=== PATIENT | male | born 1975 | race Caucasian/White ===

== ENCOUNTER 2021-08-28 19:16 | Emergency (ER) | payer BC ==
[~2021-08-28] VITALS: Ht 180.3 cm; Wt 88.6 kg
[2021-08-28] MEDS ORDERED: IV NORMAL SALINE 1000ML BAG 1,000 ML IV SCH (19:30)
[2021-08-28 19:55] LABS: BASO # 0.1 x10^3/uL (0.0-0.2); BASO % 1 % (0-3); EOS # 0.2 x10^3/uL (0.0-0.7); EOS % 1 % (0-3); HEMATOCRIT 41.2 % (39.0-53.0); HEMOGLOBIN 14.6 g/dL (13.0-17.5); LYMPH # 2.5 x10^3/uL (1.0-4.8); LYMPH % 15 % (24-48); MEAN CORPUSCULAR HEMOGLOBIN 32 pg (25-35); MEAN CORPUSCULAR HGB CONC 35 g/dL (31-37); MEAN CORPUSCULAR VOLUME 90 fL (79-100); MONO # 0.7 x10^3/uL (0.0-1.1); MONO % 4 % (0-9); NEUT # 13.4 x10^3/uL (1.8-7.7); NEUT % 79 % (31-73); PLATELET COUNT 295 x10^3/uL (140-400); RED BLOOD COUNT 4.59 x10^6/uL (4.30-5.70); RED CELL DISTRIBUTION WIDTH 13.6 % (11.5-14.5)
[2021-08-28 20:08] LABS: CALCIUM 8.6 mg/dL (8.5-10.1); GFR 80.8; POTASSIUM 3.2 mmol/L (3.5-5.1)
[2021-08-28 20:14] LABS: ALBUMIN 3.5 g/dL (3.4-5.0); ALBUMIN/GLOBULIN RATIO 1.1 (1.0-1.7); MAGNESIUM 2.1 mg/dL (1.8-2.4); TOTAL BILIRUBIN 0.1 mg/dL (0.2-1.0); TOTAL PROTEIN 6.6 g/dL (6.4-8.2)
--- NOTE | 2021-08-28 20:26 | PHYS DOC ---
Past Medical History Past Medical History: No Pertinent History Past Surgical History: No Surgical History Smoking Status: Current Every Day Smoker Alcohol Use: None Drug Use: None General Adult EDM: Chief Complaint: CHEST PAIN HPI: HPI: 46-year-old male past medical history of tobacco use and kidney stones, presents the ED with his efrem Jacobs, (patient consents to his/her/their knowledge an d involvement in pts' medical care), with complaints of left lower quadrant abdominal pain described as sharp and stabbing in nature that radiated to his left shoulder and left chest, was a 5 out of 10 and lasted for approximately 2 hours. States patient symptoms started while he was sitting outside on the porch. Reports associated shortness of breath and clammy skin stating it was hard to breathe. Reports pain is almost resolved and is now 2 out of 10. States pain is the same level of severity as when he had his past kidney stone but that started over his left flank. States " it felt like a blunt object was being shoved in there and someone was holding it." Last bowel movement was a d ark brown color just prior to ED arrival, no associated constipation or diarrhea. Denies any increase physical activity, exercise, or blunt injury. Takes no routinely prescribed medications. Has no primary care physician. Last saw a physician in 2016 for kidney stones. No known history of COVID and has been vaccinated with the pfizer vaccine. Denies any IV drug use, cocaine or methamphetamine abuse. No associated alcohol abuse. Grandfather had coronary disease in his 70s. Father with prostate cancer and mother with breast cancer. Review of Systems: Review of Systems: Constitutional: Denies fever or chills. [] Eyes: Denies change in visual acuity. [] HENT: Denies nasal congestion or sore throat. [] Respiratory: Denies cough or hemoptysis Cardiovascular: Denies chest pain or edema. [] GI: Denies nausea, vomiting, bloody stools or diarrhea. [] : Denies dysuria or incontinence Musculoskeletal: Denies back pain or joint pain. [] Integument: Denies rash or blistering lesions Neurologic: Denies headache, focal weakness or sensory changes. [] Endocrine: Denies polyuria or polydipsia. [] Lymphatic: Denies swollen glands. [] Psychiatric: Denies depression or anxiety. [] Heart Score: C/O Chest Pain: Yes HEART Score for Chest Pain: HEART Score for Chest Pain Response (Comments) Value History Slighlty/Non-Suspicious 0 ECG Nonspecific Repolarizatio 1 Age >45 - < 65 1 Risk Factors 1 or 2 Risk Factors 1 Troponin < Normal Limit 0 Total 3 Risk Factors: Risk Factors: DM, Current or recent (<one month) smoker, HTN, HLP, family history of CAD, obesity. Risk Scores: Score 0 - 3: 2.5% MACE over next 6 weeks - Discharge Home Score 4 - 6: 20.3% MACE over next 6 weeks - Admit for Clinical Observation Score 7 - 10: 72.7% MACE over next 6 weeks - Early Invasive Strategies Current Medications: Current Medications Medications (Trade) Dose Ordered Sig/Thanh Start Time Stop Time Status Last Admin Dose Admin Sodium Chloride 1,000 ml @ 1,000 mls/hr Q1H 08/28/21 19:30 08/28/21 20:29 08/28/21 19:30 1,000 MLS/HR Allergies: Allergies: Allergies Coded Allergies Type Severity Reaction Last Updated Verified acetaminophen Allergy Intermediate 12/05/15 Yes pseudoephedrine Allergy Intermediate 12/05/15 Yes Physical Exam: PE: Constitutional: Well developed, well nourished, no acute distress, non-toxic appearance. HENT: Normocephalic, atraumatic, Eyes: EOMI, conjunctiva normal, no discharge. Neck: Normal range of motion, supple, Cardiovascular: S1/2 present, regular rhythm Lungs & Thorax: Speaking in full sentences, bilateral equal chest rise, no tachypnea or increased work of breathing Abdomen: soft, no tenderness, no rigidity or guarding, no left lower quadrant abdominal pain, truncal obesity Skin: Warm, dry, no erythema, no rash. [] Back: No tenderness, no CVA tenderness. [] Extremities: No tenderness, no cyanosis, no lower extremity edema, normal range of motion of left shoulder Neurologic: Alert and oriented X 3, normal motor function, normal sensory function, no focal deficits noted. [] Psychologic: Affect normal, judgement normal, mood normal. [] Current Patient Data: Labs: Laboratory Tests Test 08/28/21 19:43 White Blood Count 17.0 x10^3/uL (4.0-11.0) H Red Blood Count 4.59 x10^6/uL (4.30-5.70) Hemoglobin 14.6 g/dL (13.0-17.5) Hematocrit 41.2 % (39.0-53.0) Mean Corpuscular Volume 90 fL (79-100) Mean Corpuscular Hemoglobin 32 pg (25-35) Mean Corpuscular Hemoglobin Concent 35 g/dL (31-37) Red Cell Distribution Width 13.6 % (11.5-14.5) Platelet Count 295 x10^3/uL (140-400) Neutrophils (%) (Auto) 79 % (31-73) H Lymphocytes (%) (Auto) 15 % (24-48) L Monocytes (%) (Auto) 4 % (0-9) Eosinophils (%) (Auto) 1 % (0-3) Basophils (%) (Auto) 1 % (0-3) Neutrophils # (Auto) 13.4 x10^3/uL (1.8-7.7) H Lymphocytes # (Auto) 2.5 x10^3/uL (1.0-4.8) Monocytes # (Auto) 0.7 x10^3/uL (0.0-1.1) Eosinophils # (Auto) 0.2 x10^3/uL (0.0-0.7) Basophils # (Auto) 0.1 x10^3/uL (0.0-0.2) Sodium Level 143 mmol/L (136-145) Potassium Level 3.2 mmol/L (3.5-5.1) L Chloride Level 105 mmol/L (98-107) Carbon Dioxide Level 27 mmol/L (21-32) Anion Gap 11 (6-14) Blood Urea Nitrogen 20 mg/dL (8-26) Creatinine 1.0 mg/dL (0.7-1.3) Estimated GFR (Cockcroft-Gault) 80.8 BUN/Creatinine Ratio 20 (6-20) Glucose Level 187 mg/dL (70-99) H Calcium Level 8.6 mg/dL (8.5-10.1) Magnesium Level 2.1 mg/dL (1.8-2.4) Total Bilirubin 0.1 mg/dL (0.2-1.0) L Aspartate Amino Transferase (AST) 17 U/L (15-37) Alanine Aminotransferase (ALT) 34 U/L (16-63) Alkaline Phosphatase 68 U/L (46-116) Troponin I Quantitative < 0.017 ng/mL (0.000-0.055) Total Protein 6.6 g/dL (6.4-8.2) Albumin 3.5 g/dL (3.4-5.0) Albumin/Globulin Ratio 1.1 (1.0-1.7) Lipase 111 U/L (73-393) Laboratory Tests 08/28/21 19:43 Laboratory Tests 08/28/21 19:43 Vital Signs: Vital Signs Date Time Temp Pulse Resp B/P (MAP) Pulse Ox O2 Delivery O2 Flow Rate FiO2 08/28/21 19:28 97.9 77 18 156/79 (104) 97 97.9 EKG: EKG: Sinus rhythm 71 bpm, no axis deviation, normal intervals, T wave inversion V2, no ST elevation or ST depression Radiology/Procedures: Radiology/Procedures: IMAGING REPORT Signed PATIENT: MARCELLO BARTHOLOMEW ACCOUNT: [id number] : 1975 LOCATION: ER AGE: 46 SEX: M EXAM STATUS: REG ER ORD. PHYSICIAN: IRMA HANCOCK DO REASON: llq pain to shoulder, h/o kidney stones PROCEDURE: CT ABDOMEN PELVIS WO CONTRAST CT abdomen and pelvis without contrast PQRS statement: CT scans at this facility use dose reduction including either automated exposure control, iterative reconstructions, and /or weight based radiation dosing via mA and kV modification when appropriate to reduce radiation dose to as low as reasonably achievable. HISTORY: Kidney stones, left lower quadrant abdominal pain. Abdomen findings: Shallow lower lumbar disc bulges. Lung bases unremarkable. There are couple small subcentimeter hypodense lesions right hepatic lobe and left hepatic lobe image 39-40 which are too small to characterize, likely small cysts or hemangiomas. Gallbladder, pancreas, spleen, adrenal glands unremarkable. There is very mild bilateral perinephric edema. Left renal midpole 3 mm nonobstructing calculus. No ureteral calculi or hydronephrosis. Sigmoid colonic diverticulosis, no evidence of diverticulitis. There are other areas of lesser scattered colonic diverticulosis present. Appendix is negative. No bowel obstruction. 1 cm fatty periumbilical abdominal wall hernia. Pelvis findings: No bladder calculi. Prostate, rectum and bones are unremarkable. IMPRESSION: 1. No acute process. Appendix is normal. 2. 3 mm left renal nonobstructing calculus. No ureteral or bladder calculi or hydronephrosis. 3. Mild bilateral perinephric edema may be the sequela of renal insufficiency. 4. Sigmoid colonic diverticulosis, with no evidence of diverticulitis. Electronically signed by: Lucila Wood MD (08/28/2021 9:09 PM) [facility] DICTATED and SIGNED BY: LUCILA WOOD MD DATE: 08/28/[id number] 0 IMAGING REPORT Signed PATIENT: MARCELLO BARTHOLOMEW ACCOUNT: [id number] : 1975 LOCATION: ER AGE: 46 SEX: M EXAM STATUS: REG ER ORD. PHYSICIAN: IRMA HANCOCK DO REASON: cp PROCEDURE: PORTABLE CHEST 1V EXAM: AP View of the chest DATE: 08/28/2021 8:08 PM INDICATION: Chest pain COMPARISON: No Prior FINDINGS: The heart is not enlarged. Mediastinal and hilar contours are normal. No focal parenchymal airspace opacity. No pleural effusion or pneumothorax. IMPRESSION: 1. No radiographic evidence for acute cardiopulmonary process. Electronically signed by: Carlos Melendez MD (08/28/2021 8:33 PM) [facility] DICTATED and SIGNED BY: CARLOS MELENDEZ MD DATE: 08/28/[id number] 0 Course & Med Decision Making: Course & Med Decision Making Pertinent Labs and Imaging studies reviewed. (See chart for details) In for lower abdominal pain that radiated up to patient's left shoulder. Triage was concerned for atypical chest pain. Labs show nonspecific leukocytosis with unremarkable chest x-ray. Patient with mildly elevated hypertension, is asymptomatic. 2 troponins are negative. No ischemia on EKG. No hematuria on urinalysis. No evidence of renal insufficiency on labs. Unremarkable chest x- ray. CT imaging with no evidence of diverticulitis, appendicitis. There is nonspecific perinephric edema. I reviewed CT and abdominal aorta is not more than 3 cm in 2 dimensions. Patient is low risk for Mace. I suspect more of a renal colic process versus indigestion -had a bowel movement associated with the abdominal pain. Patient states abdominal pain has now resolved. Will discharge home with strict ED return precautions were given for chest pain, worsening abdominal pain, syncope or neurologic deficits. Encouraged urgent outpatient follow-up with PMD and cardiology for nonemergent outpatient follow-up. Life- threatening processes were considered but are low suspicion at this time, given history, physical exam and ED workup. Pt was educated on all prescription medications and adverse effects. All patient's questions were answered and pt was stable at time of discharge. Life/limb-threatening differential includes but is not limited to, aortic dissection, aortic aneurysm, acute coronary syndrome, surgical abdomen (appendicitis, cholecystitis, ischemic bowel, strangulated hernia, etc), bowel obstruction or volvulus, bladder outlet obstruction, gastrointestinal bleeding, inflammatory bowel disease, peptic ulcer disease, ACS/CAD, sepsis, diverticular disease, ureterolithiasis, nephrolithiasis, ovarian or testicular torsion, ectopic , vaginal hemorrhage, or genitourinary infection. I have spoken with the patient and/or caregivers. I explained the patient's condition, diagnoses and treatment plan based on the information available to me at this time. I have answered the patient and/or caregiver's questions and addressed any concerns. The patient and/or caregivers have a good understanding of patient's diagnosis, condition and treatment plan as can be expected at this point. Vital signs have been stable. Patient's condition is stable and appropriate for discharge from the emergency department. Patient will pursue further outpatient evaluation with primary care physician or other designated or consulting physician as outlined in the discharge instructions. The patient and/or caregivers are agreeable to this plan of care and follow-up instructions have been explained in detail. The patient and/or caregivers have received these instructions in written form and have expressed an understanding of the discharge instructions. The patient and/or caregivers are aware that any significant change of condition or worsening of symptoms should prompt immediate return to this or the closest emergency department or call to 911. Eduardo Disclaimer: Eduardo Disclaimer: This electronic medical record was generated, in whole or in part, using a voice recognition dictation system. Departure Departure Impression: Primary Impression: Left lower quadrant abdominal pain Additional Impression: Chest pain Disposition: HOME / SELF CARE / HOMELESS Condition: STABLE Referrals: NO PCP (PCP) Patient Instructions: Abdominal Pain (Nonspecific), Chest Pain (Nonspecific) Additional Instructions: FOLLOW UP WITH CARDIOLOGY: FOR DEFINITIVE MANAGEMENT for atypical, nonemergent chest pain [facility] [address] [place] [address] EMERGENCY DEPARTMENT GENERAL DISCHARGE INSTRUCTIONS Thank you for coming to [facility] Emergency Department (ED) today and trusting us with you care. We trust that you had a positive experience in our Emergency Department. If you wish to speak to the department management, you may call the Director at [phone]. YOUR FOLLOW UP INSTRUCTIONS ARE FOLLOWS: 1. Do you have a private Doctor? If you do not have a private doctor, please ask for a resource list of physicians or clinics that may be able to assist you with follow up care. 2. The Emergency Physicain has interpreted your x-rays. The X-Ray specialist will also review them. If there is a change in the findings, you will be notified in 48 hours when at all possible. 3. A lab test or culture has been done, your results will be reviewed and you will be notified if you need a change in treatment. ADDITIONAL INSTRUCTIONS AND INFORMATION: 1. Your care today has been supervised by a physician who is specially trained in emergency care. Many problems require more than one evaluation for a complete diagnosis and treatment. We recommend that you schedule your follow up appointment as recommended to ensure complete treatment of you illness or injury. If you are unable to obtain follow up care and continue to have a problem, or if your condition worsens, we recommend that you return to the ED. 2. We are not able to safely determine your condition over the phone nor are we able to give sound medical advice over the phone. For these safety reasons, if you call for medical advice we will ask you to come to the ED for further evaluation. 3. If you have any questions regarding these discharge instructions please call the ED at [phone]. SAFETY INFORMATION: In the interest of safety, wellness, and injury prevention; we encourage you to wear your sealbelt, if you smoke; quite smoking, and we encourage family to use a protective helmet for bicycling and other sporting events that present an increased risk for head injury. IF YOUR SYMPTOMS WORSEN OR NEW SYMPTOMS DEVELOP, OR YOU HAVE CONCERNS ABOUT YOUR CONDITION; OR IF YOUR CONDITION WORSENS WHILE YOU ARE WAITING FOR YOUR FOLLOW UP APPOINTMENT; EITHER CONTACT YOUR PRIMARY CARE DOCTOR, THE PHYSICIAN WHOSE NAME AND NUMBER YOU WERE GIVEN, OR RETURN TO THE ED IMMEDIATELY. IRMA BAEZA DO Aug 28, 2021 20:26
--- NOTE | 2021-08-28 20:35 | RAD ---
EXAM: AP View of the chest DATE: 08/28/2021 8:08 PM INDICATION: Chest pain COMPARISON: No Prior FINDINGS: The heart is not enlarged. Mediastinal and hilar contours are normal. No focal parenchymal airspace opacity. No pleural effusion or pneumothorax. IMPRESSION: 1. No radiographic evidence for acute cardiopulmonary process. Electronically signed by: Carlos Kevin MD (08/28/2021 8:33 PM) [facility]
--- NOTE | 2021-08-28 21:11 | RAD ---
CT abdomen and pelvis without contrast PQRS statement: CT scans at this facility use dose reduction including either automated exposure cont rol, iterative reconstructions, and /or weight based radiation dosing via mA and kV modification when appropriate to reduce radiation dose to as low as reasonably achievable. HISTORY: Kidney stones, left lower quadrant abdominal pain. Abdomen findings: Shallow lower lumbar disc bulges. Lung bases unremarkable. There are couple small s ubcentimeter hypodense lesions right hepatic lobe and left hepatic lobe image 39-40 which are too sma ll to characterize, likely small cysts or hemangiomas. Gallbladder, pancreas, spleen, adrenal glands unremarkable. There is very mild bilateral perinephric edema. Left renal midpole 3 mm nonobstructing calculus. No ureteral calculi or hydronephrosis. Sigmoid colonic diverticulosis, no evidence of diver ticulitis. There are other areas of lesser scattered colonic diverticulosis present. Appendix is nega tive. No bowel obstruction. 1 cm fatty periumbilical abdominal wall hernia. Pelvis findings: No bladder calculi. Prostate, rectum and bones are unremarkable. IMPRESSION: 1. No acute process. Appendix is normal. 2. 3 mm left renal nonobstructing calculus. No ureteral or bladder calculi or hydronephrosis. 3. Mild bilateral perinephric edema may be the sequela of renal insufficiency. 4. Sigmoid colonic diverticulosis, with no evidence of diverticulitis. Electronically signed by: Reinier Wood MD (08/28/2021 9:09 PM) [facility]
[2021-08-28 21:29] LABS: BILIRUBIN,URINE NEGATIVE (NEG); CLARITY,URINE CLEAR; COLOR,URINE YELLOW; NITRITE,URINE NEGATIVE (NEG); PROTEIN,URINE NEGATIVE (NEG-TRACE); UROBILINOGEN,URINE 0.2 mg/dL (0.2 mg/dL)
[2021-08-28 21:35] LABS: BARBITURATES NEG (NEG); BENZODIAZEPINES NEG (NEG); CANNABINOIDS NEG (NEG); COCAINE NEG (NEG); METHADONE NEG (NEG); OPIATES NEG (NEG); PHENCYCLIDINE NEG (NEG)
[2021-08-28 21:38] LABS: AMPHETAMINE/METHAMPHETAMINE NEG (NEG)
[2021-08-28 21:39] LABS: BACTERIA,URINE 0 /HPF (0-FEW); RBC,URINE 0 /HPF (0-2); WBC,URINE 0 /HPF (0-4)
[2021-08-29] VITALS: BP 128/60
== END 2021-08-29 00:30 | disposition home or self-care (01) ==
LOC: ER 19:16
DX: R10.32 Left lower quadrant pain (principal); R07.89 Other chest pain; R06.02 Shortness of breath; F17.200 Nicotine dependence, unspecified, uncomplicated; Z88.6 Allergy status to analgesic agent; Z88.8 Allergy status to other drugs, medicaments and biological substances
CPT/HCPCS: 36415; 71045; 74176; 80053; 80307; 81001; 83690; 83735; 83880; 84484; 85025; 85379; 93005; 96360; 96361; 99285; J7030